=== PATIENT | female | born 1995 | race Caucasian/White ===

== ENCOUNTER 2021-12-10 09:44 | Emergency (ER) | payer MEDICAID ==
[~2021-12-10] VITALS: Ht 157.5 cm; Wt 81.6 kg
--- NOTE | 2021-12-10 09:44 | NUR ---
BROUGHT IN BY [place] [id number] AND [facility], PLACED IN ROOM #6, TRIAGED. PT IS UNCOOPERATIVE WITH WITH TRIAGE AND VITALS. REPORT GIVEN TO ALLEY Addendum: 12/10/21 at 1000 by HUGH REPORT CHANGED TO ALLIE
--- NOTE | 2021-12-10 10:06 | NUR ---
BOZENA Winter at bedside examining patient.
[2021-12-10] MEDS ORDERED: LORazepam 2 MG/ML VIAL IM ONE ×2 (10:15→12:15)
--- NOTE | 2021-12-10 10:17 | NUR ---
lead slot technician at bedside.
--- NOTE | 2021-12-10 10:18 | NUR ---
Covid swab done and sent to lab.
[2021-12-10 10:23] LABS: BASOPHILS % (AUTO) 0.6 % (0.0-2.0); EOSINOPHILS # (AUTO) 0.3 K/uL (0.0-0.4); EOSINOPHILS % (AUTO) 4.1 % (0.0-4.0); HEMATOCRIT 37.6 % (36-48); HEMOGLOBIN 13.1 g/dL (12.0-16.0); LYMPHOCYTES # (AUTO) 2.7 K/uL (1.0-5.5); LYMPHOCYTES % (AUTO) 39.2 % (20.5-51.5); MEAN CORPUSCULAR HEMOGLOBIN 29 pg (27-31); MEAN CORPUSCULAR HGB CONC 35 % (32-36); MEAN CORPUSCULAR VOLUME 83 fL (79.0-98.0); MONOCYTES # (AUTO) 0.7 K/uL (0.0-1.0); MONOCYTES % (AUTO) 10.4 % (1.7-9.3); NEUTROPHILS # (AUTO) 3.2 K/uL (1.8-7.7); NEUTROPHILS % (AUTO) 45.7 % (40.0-70.0); PLATELET COUNT (AUTO) 384 K/uL (130-430); RED BLOOD CELL COUNT(AUTO) 4.52 MIL/uL (4.2-6.2); RED CELL DISTRIBUTION WIDTH 12.8 % (9.0-15.0)
[2021-12-10 10:35] LABS: ANION GAP 8 (5-15); CALCIUM 8.5 mg/dL (8.4-11.0); CHLORIDE 104 mmol/L (98-107); CREATININE 0.63 mg/dL (0.55-1.30); GLUCOSE 80 mg/dL (70-99); POTASSIUM 3.5 mmol/L (3.5-5.1); SODIUM SERUM 139 mmol/L (136-145); UREA NITROGEN, BLOOD 7 mg/dL (8-21)
[2021-12-10 10:41] LABS: ACETAMINOPHEN < 1 ug/mL (1-30); ALANINE AMINOTRANSFERASE 39 U/L (12-78); ALCOHOL, BLOOD < 3 mg/dL (<10); ASPARTATE AMINOTRANSFERASE 26 U/L (10-37); GFR AFRICAN AMERICAN 145 mL/min (>90); TOTAL BILIRUBIN 0.1 mg/dL (0.0-1.0)
--- NOTE | 2021-12-10 11:45 | NUR ---
Patient transported to radiology via gurney, accompanied by radiology techs.
--- NOTE | 2021-12-10 11:55 | NUR ---
Returned from radiology, back to [facility].
[2021-12-10] MEDS ORDERED: HALOPERIDOL LACTATE 5 MG/ML VIAL IM ONE (12:15)
[2021-12-10] MEDS ORDERED: BENZTROPINE MESYLATE 2 MG/ 2 ML AMP IM ONE (12:15)
--- NOTE | 2021-12-10 12:54 | NUR ---
Urine collected and sent to lab.
--- NOTE | 2021-12-10 13:45 | NUR ---
Report received from Jessica CARDENAS to assume care of patient
[2021-12-10 13:55] LABS: BILIRUBIN,URINE NEGATIVE (NEGATIVE); CLARITY/URINE CLEAR (CLEAR); COLOR,URINE YELLOW (YELLOW); GLUCOSE,URINE NEGATIVE (NEGATIVE); KETONES,URINE NEGATIVE (NEGATIVE); LEUKOCYTE ESTERASE ,URINE NEGATIVE (NEGATIVE); NITRITE, URINE NEGATIVE (NEGATIVE); PROTEIN URINE NEGATIVE (NEGATIVE)
[2021-12-10 14:01] LABS: CANNABINOID, URINE POSITIVE (NEG <=50); URINE AMPHETAMINE POSITIVE (NEG <=500)
[2021-12-10 14:02] LABS: BARBITURATE, URINE NEGATIVE (NEG <=200); BENZODIAZEPINE, URINE NEGATIVE (NEG <=150); COCAINE, URINE NEGATIVE (NEG <=150); METHAMPHETAMINES SCREEN,URINE POSITIVE (NEG <=500); OPIATE, URINE NEGATIVE (NEG <=100); PHENCYCLIDINE SCREEN,URINE NEGATIVE (NEG <=25); UR TRICYCLIC ANTIDEPRESSANTS NEGATIVE (NEG <=300); URINE METHADONE NEGATIVE (NEG <=200); URINE OXYCODONE SCREEN NEGATIVE (NEG <=100); URINE PROPOXYPHENE SCREEN NEGATIVE (NEG <=300)
[2021-12-10 14:06] LABS: BLOOD, URINE TRACE (NEGATIVE)
--- NOTE | 2021-12-10 15:15 | NUR ---
Faxed facesheet and clinicals to the designated LPS facilities pending [facility] Cinthya Thakkar [facility] [place] will wait for call back regarding placement.
[2021-12-10 15:23] LABS: RBC,URINE 20-50 /HPF (0-3)
[2021-12-10 15:24] LABS: BACTERIA,URINE None Seen /HPF (None Seen); WBC,URINE 0-3 /HPF (0-3)
[2021-12-10 15:25] LABS: MUCUS,URINE 1+ /LPF (None Seen)
--- NOTE | 2021-12-10 17:16 | NUR ---
Pt resting in bed. NAD noted. BP elevated but otherwise VSS on forensic science examiner. Pt continues to await placement at psychiatric facility. Sitter at bedside to ensure safety.
--- NOTE | 2021-12-10 19:40 | NUR ---
Pt resting in bed. 1:1 sitter noted. Sitter states patient does not allow for vital signs to be taken.
--- NOTE | 2021-12-10 21:03 | NUR ---
Pt given 1 cup of water,2 juices, jello, pudding, and turkey sandwhich. Pt consumed 100%.
[2021-12-10] MEDS ORDERED: NACL 0.9% 1,000 ML IV ONE (21:15)
--- NOTE | 2021-12-10 23:11 | NUR ---
Pt remains in bed resting with eyes closed. 1:1 sitter present at door. Pt has irritable episodes whenever vital signs are attempted to be taken. Pt aaox2.
--- NOTE | 2021-12-11 01:09 | NUR ---
Pt resting in bed. NO acute distress noted. Pt compliant with certain request.
--- NOTE | 2021-12-11 03:10 | NUR ---
Pt resting in stretcher. Resp even and unlabored. Denies any pain.
--- NOTE | 2021-12-11 04:30 | NUR ---
Pt refused vital signs at this time.
--- NOTE | 2021-12-11 05:45 | NUR ---
Pt ambulated to restroom to urinate. Pt fussing and cursing.
[2021-12-11 07:07] LABS: HEPATITIS B CORE AB, TOTAL Negative (Negative); HEPATITIS B SURFACE AG Negative (Negative); HEPATITIS C VIRUS AB <0.1 s/co ratio (0.0-0.9)
--- NOTE | 2021-12-11 07:15 | NUR ---
RECEIVE PT IN BED #6, IN NAD, VSS, AAOx2, HIDING UNDER THE BLANKETS, SOME MILD IRRITABILITY. PT IS STABLE, AWAITING TRANSPORT TO A PSYCH FACILITY AFTER MEDICAL CLEARANCE.
[2021-12-11] MEDS ORDERED: HALOPERIDOL LACTATE 5 MG/ML VIAL IVP ONE (09:30)
[2021-12-11] MEDS ORDERED: LORazepam 2 MG/ML VIAL IVP ONE (09:30)
--- NOTE | 2021-12-11 09:40 | NUR ---
PT BECOMING VERBALLY ABUSIVE TO STAFF AFTER EXPLAINING THAT SHE WILL BE GOING TO [facility] SHE IS PL[address]ED ON [address] FOR GD AND DTO. PT RESPONDED AND ALLOWED US TO GIVE IV MEDICATION OF ATIVAN AND HALDOL SHE WAS BELIGERANT.
--- NOTE | 2021-12-11 11:00 | NUR ---
PT IS STABLE, NAD, VSS, COOPERATIVE. AWAITING TRANSPORT TO [facility]. IV DISCONTINUED.
[2021-12-11 11:50] VITALS: BP_SYST 139
--- NOTE | 2021-12-11 13:30 | NUR ---
ANGY MARIA TO TRANSFER TO [facility]
== END 2021-12-11 13:30 ==
LOC: SED 09:44
DX: S09.90XA Unspecified injury of head, initial encounter (principal); R45.6 Violent behavior; F15.921 Other stimulant use, unspecified with intoxication delirium; F29 Unspecified psychosis not due to a substance or known physiological condition; Z79.899 Other long term (current) drug therapy; Z20.822 Contact with and (suspected) exposure to COVID-19; Y04.0XXA Assault by unarmed brawl or fight, initial encounter; Y93.89 Activity, other specified; Y92.89 Other specified places as the place of occurrence of the external cause; Y99.8 Other external cause status
CPT/HCPCS: 36415; 70450; 71045; 76376; 80053; 80307; 81000; 85025; 86701; 86702; 86704; 86706; 86803; 87340; 87426; 87536; 96361; 96372; 96374; 96375; 99291; G0480; J0515; J1630 ×2; J2060 ×2; J7030; G0481; G0482